=== PATIENT | female | born 1990 | race Caucasian/White ===

== ENCOUNTER → 2020-11-29 | Outpatient (CLI) | payer OTHER ==
[~2020-11-29] MED LIST: COLACE 100MG C100 MG PO; HYDROCODON-ACE1 EAC6 PO; IBUPROFEN600 MG PO; LORTAB 5-325 M1 EACH PO; MEDROL DOSEPAK 24 MG PO; MIRALAX17 GM PO; PRENATAL VITAM1 EAC8 PO; ZANTAC150 MG PO; ZOFRAN4 MG PO
== END ==
LOC: LAB 12:31 → EDSTATUS 12:33
DX: Z32.00 Encounter for pregnancy test, result unknown (principal)
CPT/HCPCS: 36415; 84702

== ENCOUNTER → 2020-11-30 | Day surgery (SDC) | payer OTHER ==
[2020-11-30 07:57] LABS: HEMOGLOBIN 12.8 gm/dl (12.3-15.3); RED BLOOD COUNT 4.4 M/UL (4.00-5.10); WHITE BLOOD COUNT 6.4 K/UL (4.5-11.0)
== END | disposition home or self-care (01) ==
LOC: OR 06:04
PROVIDERS: Obstetrics & Gynecology
DX: O00.101 Right tubal pregnancy without intrauterine pregnancy (principal); Z88.0 Allergy status to penicillin; Z20.822 Contact with and (suspected) exposure to COVID-19; Z88.1 Allergy status to other antibiotic agents
CPT/HCPCS: 36415; 84702; 85027; J1100; J1885; J2250; J2405; J2704; J2795; J3010; J3475; J7120; U0002

== ENCOUNTER → 2021-02-04 | Outpatient (CLI) | payer OTHER | LOC: LAB 13:18 | DX: O23.31 Infections of other parts of urinary tract in pregnancy, first trimester (principal) | CPT/HCPCS: 84702 ==

== ENCOUNTER 2021-02-13 19:01 | Emergency (ER) | payer OTHER ==
[~2021-02-13 19:01] MED LIST changes: -MEDROL DOSEPAK 24 MG PO
[2021-02-13] MEDS ORDERED: MEDROL DOSEPAK 24 MG PO (19:53)
== END 2021-02-13 20:00 | disposition home or self-care (01) ==
LOC: ER1 19:01
DX: L23.7 Allergic contact dermatitis due to plants, except food (principal); Z90.89 Acquired absence of other organs; Z88.0 Allergy status to penicillin
CPT/HCPCS: 99282

== ENCOUNTER 2021-09-13 05:31 | Inpatient (IN) | payer OTHER ==
[~2021-09-13] VITALS: Ht 157.5 cm; Wt 91.6 kg
[~2021-09-13 05:31] MED LIST changes: +MEDROL DOSEPAK 24 MG PO
[2021-09-13] MEDS ORDERED: GLUCOPHAGE XR500 M1 PO (06:15)
[2021-09-13] MEDS ORDERED: FAMOTIDINE20 MG PO (06:16)
[2021-09-13] MEDS ORDERED: PRENATAL VITAM1 EAC8 PO (06:16)
[2021-09-13 06:20] LABS: HEMOGLOBIN 12.4 gm/dl (12.3-15.3); RED BLOOD COUNT 4.15 M/UL (4.00-5.10); WHITE BLOOD COUNT 7.9 K/UL (4.5-11.0)
[2021-09-14 07:59] LABS: HEMOGLOBIN 11.5 gm/dl (12.3-15.3)
[2021-09-15] MEDS ORDERED: HEMOCYTE324 MG PO (12:46)
[2021-09-15] MEDS ORDERED: IBUPROFEN800 MG PO (12:46)
[2021-09-15] MEDS ORDERED: COLACE100 MG PO (12:46)
[2021-09-15] MEDS ORDERED: PERCOCET 5/325 T1 EA PO (12:46)
== END 2021-09-15 16:26 | disposition home or self-care (01) | DRG 788 ==
LOC: OB 05:31
PROVIDERS: ADMIT Obstetrics & Gynecology
PROC: 10D00Z1 Extraction of Products of Conception, Low, Open Approach (ICD-10-PCS; principal; 2021-09-13 07:30)
DX: O32.1XX0 Maternal care for breech presentation, not applicable or unspecified (principal); O36.5930 Maternal care for other known or suspected poor fetal growth, third trimester, not applicable or unspecified; O24.424 Gestational diabetes mellitus in childbirth, insulin controlled; O99.344 Other mental disorders complicating childbirth; F17.290 Nicotine dependence, other tobacco product, uncomplicated; Z20.822 Contact with and (suspected) exposure to COVID-19; F41.8 Other specified anxiety disorders; O99.334 Smoking (tobacco) complicating childbirth; Z37.0 Single live birth; Z3A.37 37 weeks gestation of pregnancy; Z79.84 Long term (current) use of oral hypoglycemic drugs; Z98.890 Other specified postprocedural states; Z90.49 Acquired absence of other specified parts of digestive tract; Z82.49 Family history of ischemic heart disease and other diseases of the circulatory system; Z83.3 Family history of diabetes mellitus; Z83.42 Family history of familial hypercholesterolemia; Z83.49 Family history of other endocrine, nutritional and metabolic diseases; Z88.0 Allergy status to penicillin; Z88.8 Allergy status to other drugs, medicaments and biological substances
CPT/HCPCS: 81001; 82800; 82962; 85014; 85018; 85025; 90686; 90715; C9113; J1170; J1580; J1885; J2250; J2274; J2370; J2405; J2590; J3010; J7030; J7120

== ENCOUNTER → 2021-12-26 | Outpatient (CLI) | payer OTHER ==
[~2021-12-26] MED LIST changes: +COLACE100 MG PO; +FAMOTIDINE20 MG PO; +GLUCOPHAGE XR500 M1 PO; +HEMOCYTE324 MG PO; +IBUPROFEN800 MG PO; +PERCOCET 5/325 T1 EA PO
== END ==
LOC: KOH-I 10:50
DX: R10.11 Right upper quadrant pain (principal); N28.9 Disorder of kidney and ureter, unspecified
CPT/HCPCS: 76705

== ENCOUNTER → 2022-01-04 | Outpatient (CLI) | payer OTHER | LOC: CT 09:04 | DX: R93.5 Abnormal findings on diagnostic imaging of other abdominal regions, including retroperitoneum (principal); N26.1 Atrophy of kidney (terminal); Z90.49 Acquired absence of other specified parts of digestive tract | CPT/HCPCS: 74170; Q9967 ==

== ENCOUNTER 2022-02-24 16:59 | Emergency (ER) | payer OTHER ==
[2022-02-24 17:33] LABS: HEMOGLOBIN 13.2 gm/dl (12.3-15.3); RED BLOOD COUNT 4.39 M/UL (4.00-5.10); WHITE BLOOD COUNT 7.2 K/UL (4.5-11.0)
[2022-02-24 17:59] LABS: BUN/CREATININE RATIO 17 (0-10)
[2022-02-24] MEDS ORDERED: CARAFATE1 GM PO (18:37)
== END 2022-02-24 18:45 | disposition home or self-care (01) ==
LOC: ER1 16:59
PROVIDERS: Emergency Medicine
DX: R10.13 Epigastric pain (principal); R10.816 Epigastric abdominal tenderness; R11.0 Nausea; R19.7 Diarrhea, unspecified; Z90.89 Acquired absence of other organs; Z88.0 Allergy status to penicillin; F17.290 Nicotine dependence, other tobacco product, uncomplicated
CPT/HCPCS: 80053; 81001; 83690; 85025; 99284

== ENCOUNTER → 2022-03-15 | Outpatient (CLI) | payer OTHER ==
[~2022-03-15] MED LIST changes: +CARAFATE1 GM PO
== END ==
LOC: KOH-I 03-08 15:30
DX: R10.2 Pelvic and perineal pain (principal)
CPT/HCPCS: 72192